=== PATIENT | female | born 1990 | race Caucasian/White ===

== ENCOUNTER 2018-10-10 05:56 | Day surgery (SDC) | payer MEDICAID, OTHER ==
[2018-10-10] MEDS ORDERED: ENOXAPARIN SODIUM 40 MG/0.4 ML DISP.SYRIN SQ ONE ×2 (06:03→08:48)
[2018-10-10] MEDS ORDERED: FAMOTIDINE 20 MG/2 ML VIAL ONE ×3 (06:03→08:48)
[2018-10-10] MEDS ORDERED: SCOPOLAMINE HYDROBROMIDE 1.5MG/72HR PATCH TD ONE ×2 (06:03→08:48)
[2018-10-10] MEDS ORDERED: PREGNANCY TEST KIT 1 EACH KIT MC ONE (06:03)
[2018-10-10] MEDS ORDERED: LACTATED RINGERS 1,000 ML IV ONE (06:03)
[2018-10-10] MEDS ORDERED: LEVALBUTEROL NEB 1.25 MG/3 ML VIAL.NEB IH ONE (06:50)
[2018-10-10] MEDS ORDERED: MIDAZOLAM HCL 2 MG/2 ML VIAL ONE (08:48)
[2018-10-10] MEDS ORDERED: ROCURONIUM BROMIDE 10 MG/ML 5ML VIAL ONE (08:48)
[2018-10-10] MEDS ORDERED: DEXAMETHASONE SOD PHOS 4 MG/ML VIAL ONE (08:48)
[2018-10-10] MEDS ORDERED: LACTATED RINGERS 1,000 ML IV.SOLN IV ONE ×2 (08:48)
[2018-10-10] MEDS ORDERED: LABETALOL HCL 20 MG/4 ML SYRINGE IV ONE (08:48)
[2018-10-10] MEDS ORDERED: fentaNYL CITRATE/PF 100 MCG/2 ML INJ. ONE ×2 (08:48→09:50)
[2018-10-10] MEDS ORDERED: FENTANYL CITRATE/PF 250 MCG/5 ML INJ. ONE (08:48)
[2018-10-10] MEDS ORDERED: PROPOFOL 200 MG/20 ML VIAL IV ONE (08:48)
[2018-10-10] MEDS ORDERED: LEVALBUTEROL HCL 1.25 MG/3 ML AMPUL.NEB NEB ONE ×2 (08:48)
[2018-10-10] MEDS ORDERED: KETOROLAC TROMETHAMINE 30 MG/1ML VIAL ONE (08:48)
[2018-10-10] MEDS ORDERED: ONDANSETRON HCL/PF 4 MG/ 2ML VIAL ONE (08:48)
[2018-10-10] MEDS ORDERED: PROMETHAZINE HCL 25 MG/ML VIAL ONE ×2 (08:48→09:50)
[2018-10-10] MEDS ORDERED: SEVOFLURANE 250 ML LIQUID IH ONE (08:48)
[2018-10-10] MEDS ORDERED: SUGAMMADEX SODIUM 200 MG/2 ML VIAL IV ONE (08:48)
[2018-10-10] MEDS ORDERED: ceFAZolin SODIUM 1 GM VIAL ONE (08:48)
[2018-10-10] MEDS ORDERED: LIDOCAINE HCL 2% PF 100MG/5ML VIAL IJ ONE (08:48)
== END 2018-10-10 10:52 | disposition other institution (70) ==
LOC: OPSURG 05:56
PROVIDERS: ATTEND Surgery
DX: E66.01 Morbid (severe) obesity due to excess calories (principal); Z68.41 Body mass index [BMI] 40.0-44.9, adult; K21.9 Gastro-esophageal reflux disease without esophagitis; I10 Essential (primary) hypertension
CPT/HCPCS: 43235; 43775; 88305; A9270; J0690; J1100; J1650; J1885; J2001; J2250; J2405; J2550; J2704; J3010; J7120; J7614; S0028

== ENCOUNTER 2018-10-10 10:53 | Inpatient (IN) | payer MEDICAID, OTHER ==
[2018-10-10] MEDS ORDERED: OXYCODONE HCL 5 MG/5 ML SOLN UD CUP PO PRN (11:02)
[2018-10-10] MEDS ORDERED: MORPHINE SULFATE 2 MG/ML VIAL IVP PRN (11:02)
[2018-10-10] MEDS ORDERED: PROMETHAZINE HCL 25 MG in 0.9 % SODIUM CHLORIDE 50 ML IV PRN (11:02)
[2018-10-10] MEDS: 0.9 % SODIUM CHLORIDE 1,000 ML IV SCH ×2 (11:24→20:42)
[2018-10-10 12:07] VITALS: BMI 48.5
--- NOTE | 2018-10-10 12:37 | History and Physical Report ---
History of Present Illnes - History of Present Illness Reason for Visit: S/P Gastric Sleeve History of Present Illness: Patient is a 28-year-old white female who has tried multiple diets and exercise programs with no success. Patient states that she has struggled with her weight since she had her son. She is a night eater and likes soda and chips. Patient and surgeon decided to proceed with gastric sleeve procedure. Procedure went well without complications- patient will be admitted and monitored s/p surgical intervention. - Past Medical History Cardiac: HTN Gastrointestinal: GERD Psych: Depression, Other (psych clearance 06/18/18) Musculoskeletal: Chronic low back pain, Other (joint pain to hips, knees, ankles, feet) Endocrine: obesity Grav: 1 Para: 1 - Past Surgical History Past Surgical History: Other (eye in 1989) - Past Family History Mother Family History: DM, Hyperlipidemia, Hypertension Father Family History: DM, Hypertension - Past Social History Smoke: Quit Occupation: Unemployed Alcohol: Rare Drugs: None Lives: With Family Domestic Violence: Negative - Health Maintenance Health Maintenance: Tetanus. denies: Influenza Vaccine Influenza Vaccine: No, Patient Refused Pneumonia Vaccine: No Resuscitation Status: Resusciation Status Resuscitation Status Full Code - Unable to Obtain History Unable to Obtain: No Review of Systems - Review of Systems Constitutional: negative: Fever, Chills Eyes: negative: vision change ENT: negative: Ear Pain, Nose Pain, Throat Pain Respiratory: negative: Cough, Shortness of Breath Cardiovascular: negative: Chest Pain, Edema Gastrointestinal: Nausea, Abdominal Pain (s/p gastric sleeve). negative: Vomiting Genitourinary: negative: Dysuria Musculoskeletal: negative: Back Pain Skin: Other (pt just finished bactrim for a skin abscess on the right side). negative: Rash Neurological: negative: Weakness - Medications/Allergies Allergies/Adverse Reactions: Allergies Allergy/AdvReac Type Severity Reaction Status Date / Time No Known Allergies Allergy Unverified 10/10/18 11:01 Home Medications: Home Medications Biotin 10,000 mcg PO DAILY 10/10/18 Citalopram Hydrobromide [Citalopram HBr] 10 mg PO DAILY 10/10/18 Omeprazole 20 mg PO BID 10/10/18 Sulfamethoxazole/Trimethoprim [Bactrim Ds] 1 each PO BID 10/10/18 Triamterene [Dyrenium] 50 mg PO DAILY 10/10/18 amLODIPine BESYLATE [Norvasc] 5 mg PO 0900 10/10/18 Current Inpatient Medications: Current Inpatient Medications Cefazolin Sodium/Dextrose (Cefazolin 1 G/50 Ml-Dextrose) 1 gm IV Q8H [facility] Stop: 10/11/18 01:01 Enoxaparin Sodium (Lovenox) 40 mg SQ QD [facility] Stop: 10/25/18 11:59 Famotidine (Pepcid) 20 mg IVP BID [facility] Stop: 10/14/18 20:59 Promethazine HCl 25 mg/ Sodium (Chloride) 51 mls @ 200 mls/hr IV Q6 PRN PRN Reason: Nausea / Vomiting Stop: 10/14/18 11:01 Sodium Chloride (Normal Saline) 1,000 mls @ 150 mls/hr IV Q8H [facility] Last Admin: 10/10/18 11:24 Dose: 150 mls/hr Ketorolac Tromethamine (Toradol) 30 mg IVP Q6 PRN PRN Reason: For Mild Pain Stop: 10/14/18 11:01 Morphine Sulfate (Morphine Sulfate) 2 mg IVP Q2 PRN PRN Reason: Mod. pain- If unable PO Ondansetron HCl (Zofran 4 Mg/2 Ml) 4 mg IVP Q6H PRN PRN Reason: Nausea / Vomiting Stop: 10/14/18 11:01 Oxycodone HCl (Oxycodone Soln) 5 mg PO Q6H PRN PRN Reason: Mod. Pain 5-7 Exam - Exam Vital Signs: Vital Signs (72 hours) 10/10/18 11:02 Temperature 97.4 F L Pulse Rate [ 93 H Pulse ox] Respiratory 18 Rate Blood Pressure 125/78 [Left Arm] O2 Sat by Pulse 95 Oximetry General: Alert, Oriented to Person, Oriented to Place, Oriented to Time, Cooperative, Mild distress, Morbidly Obese HEENT: Atraumatic, PERRLA, Mouth Mucous membr. moist/[place], Nose Mucous membr. moist/[place] Neck: Normal Range of Motion Lungs: Clear to auscultation, Normal air movement, Speaks full Sentences Cardiovascular: Regular rate, Normal S1, Normal S2 Peripheral Edema: none Peripheral Pulses: 2+ Abdomen: Soft, Decreased Bowel Sounds Integumentary: Normal, [place], Warm, Dry Extremities: No edema, Normal pulses, No tenderness/swelling Neurological: Normal gait, Normal speech, Strength Equal Bilat, Sensation intact, Cranial nerves 3-12 NL Psych/Mental Status: Mental status NL, Mood NL, Appropriate Affect Assessment/Plan - Assessment/Plan (1) S/P gastric surgery Status: Acute Current Visit: Yes Assessment: Incisions are without redness/erythema, legs are without tenderness/pain, LCTA Plan: Will monitor incision sites, patient will be placed on Lovenox daily, frequent ambulation and SCDs while in bed, patient will use incentive spirometer to prevent resp. infections, will start PPI, and will give IVFs until patient can tolerate PO (2) Morbid obesity due to excess calories Status: Acute Current Visit: Yes Assessment: S/p Gastric Sleeve (3) Hypertension Status: Acute Current Visit: Yes Qualifiers: Hypertension type: essential hypertension Qualified Code(s): I10 - Essential (primary) hypertension Assessment: Blood pressures are stable Plan: Will hold medication and monitor closely (4) Depression Status: Acute Current Visit: Yes Qualifiers: Depression Type: unspecified Qualified Code(s): F32.9 - Major depressive disorder, single episode, unspecified Assessment: Stable on home meds Plan: Will hold medication at this time (5) GERD (gastroesophageal reflux disease) Status: Acute Current Visit: Yes Qualifiers: Esophagitis presence: without esophagitis Qualified Code(s): K21.9 - Gastro-esophageal reflux disease without esophagitis Assessment: Controlled with home med Plan: Will give Pepcid IV VTE Assessment - RISK FACTOR SCORE VTE RISK FACTOR SCORES: OBESITY, MAJOR SURGERY/ANESTHESIA TIME > 1 HOUR (Lovenox daily, frequent ambulation, SCDs while in bed)
[2018-10-10] MEDS: ONDANSETRON HCL/PF 4 MG/ 2ML VIAL IVP PRN (13:51)
[2018-10-10] MEDS: KETOROLAC TROMETHAMINE 30 MG/1ML VIAL IVP PRN (15:29)
[2018-10-10] MEDS: CEFAZOLIN SODIUM/DEXTROSE,ISO 1 GM/50 ML PIGGYBACK IV SCH (17:44)
[2018-10-10] MEDS: FAMOTIDINE 20 MG/2 ML VIAL IVP SCH (20:43)
[2018-10-11] MEDS: CEFAZOLIN SODIUM/DEXTROSE,ISO 1 GM/50 ML PIGGYBACK IV SCH (01:27)
[2018-10-11] MEDS: KETOROLAC TROMETHAMINE 30 MG/1ML VIAL IVP PRN ×4 (01:29→23:27)
[2018-10-11] MEDS: 0.9 % SODIUM CHLORIDE 1,000 ML IV SCH ×2 (05:54→17:59)
--- NOTE | 2018-10-11 07:46 | Inpatient Progress Note ---
Subjective - Required Recertification Statement I anticipate X number of days because-include discharge plan: 1 - Review of Systems Subjective: Patient doing well. Has needed IV pain meds up until this point. Has been walking and using IS. Objective - Exam Vitals and I&O: Vital Signs Temp 96.8 F L 10/11/18 06:00 Pulse 74 10/11/18 06:00 Resp 16 10/11/18 06:00 BP 139/77 10/11/18 06:00 Pulse Ox 99 10/11/18 06:00 Intake & Output 10/10/18 10/10/18 10/11/18 11:59 23:59 11:59 Intake Total 0 1240 960 Output Total 0 600 800 Balance 0 640 160 Weight 120.347 kg Intake: IV 1200 900 Right Antecubital 1200 900 Oral 0 40 60 Output: Urine 0 600 800 Other: Voiding Method Toilet Toilet Toilet # Voids 1 # Bowel Movements 0 General: Alert, Oriented to Person, Oriented to Place, Oriented to Time, Cooperative, No acute distress Lungs: Clear to auscultation, Normal air movement, Speaks full Sentences Cardiovascular: Regular rate Abdomen: Normal bowel sounds, Soft, No tenderness Assessment/Plan - Assessment/Plan (1) Hypertension Status: Acute Current Visit: Yes Qualifiers: Hypertension type: essential hypertension Qualified Code(s): I10 - Essential (primary) hypertension Plan: Watch BP and adjust meds today. (2) S/P gastric surgery Status: Acute Current Visit: Yes Plan: Patient doing well. Continue current care. Advance diet.
[2018-10-11] MEDS ORDERED: amLODIPine BESYLATE 5 MG TABLET PO SCH (09:00)
[2018-10-11] MEDS: ONDANSETRON HCL/PF 4 MG/ 2ML VIAL IVP PRN (09:02)
[2018-10-11] MEDS: FAMOTIDINE 20 MG/2 ML VIAL IVP SCH ×2 (09:20→20:47)
[2018-10-11] MEDS ORDERED: ENOXAPARIN SODIUM 40 MG/0.4 ML DISP.SYRIN SQ SCH (12:00)
[2018-10-12] MEDS: 0.9 % SODIUM CHLORIDE 1,000 ML IV SCH ×2 (00:44→07:35)
[2018-10-12 06:30] VITALS: BP 120/61
--- NOTE | 2018-10-12 07:36 | Discharge Summary ---
Discharge Summary - Discharge Sumary History of Present Illness: Patient is a 28-year-old white female who has tried multiple diets and exercise programs with no success. Patient states that she has struggled with her weight since she had her son. She is a night eater and likes soda and chips. Patient and surgeon decided to proceed with gastric sleeve procedure. Procedure went well without complications- patient will be admitted and monitored s/p surgical intervention. Condition at Discharge: Stable Home Medications: Ambulatory Orders Medication Instructions Recorded Biotin 10,000 mcg PO DAILY 10/10/18 Citalopram Hydrobromide 10 mg PO DAILY 10/10/18 [Citalopram HBr] Omeprazole 20 mg PO BID 10/10/18 Sulfamethoxazole/Trimethoprim 1 each PO BID 10/10/18 [Bactrim Ds] Triamterene [Dyrenium] 50 mg PO DAILY 10/10/18 amLODIPine BESYLATE [Norvasc] 5 mg PO 0900 10/10/18 Consultations this Visit: None Procedures this Visit: Other (Sleeve gastrectomy) Allergies/Adverse Reactions: Allergies Allergy/AdvReac Type Severity Reaction Status Date / Time No Known Allergies Allergy Unverified 10/10/18 11:01 Discharge Summary: Patient did well postoperatively. She ambulated, used IS, used SCD and lovenox. Pain and nausea controlled well. Discharged home in good condition. Hospital Course: D/C diag - Morbid obesity, s/p sleeve gastrectomy, HTN
== END 2018-10-12 08:30 | disposition home or self-care (01) | DRG 641 ==
LOC: SOUTH 10:53
PROVIDERS: ADMIT Nurse Practitioner Family; ATTEND Nurse Practitioner Family
DX: E66.01 Morbid (severe) obesity due to excess calories (principal); Z68.41 Body mass index [BMI] 40.0-44.9, adult; I10 Essential (primary) hypertension; K21.9 Gastro-esophageal reflux disease without esophagitis; Z98.84 Bariatric surgery status
CPT/HCPCS: 99231; 99232; 99238; J1650; J1885; J2405; J7030